=== PATIENT | female | born 1955 | race Caucasian/White ===

== ENCOUNTER 2021-03-19 07:32 | Inpatient (IN) | payer OTHER ==
[~2021-03-19] VITALS: Ht 165.1 cm; Wt 63.5 kg
[2021-03-19 07:37] VITALS: BP 151/70
[2021-03-19 08:06] LABS: ABSOLUTE NEUTROPHILS 14.3 thou/uL (1.4-8.2); BASOPHILS 0.1 % (0.0-2.0); EOSINOPHILS 0.1 % (0.0-3.0); HEMATOCRIT 39.1 % (37.0-47.0); HEMOGLOBIN 13.3 gm/dL (12.0-15.0); LYMPHOCYTES 4.8 % (24.0-44.0); MCH 33.9 pg (26.0-34.0); MCHC 34.1 g/dL (28.0-37.0); MCV 99.5 fL (80.0-100.0); MONOCYTES 5.5 % (1.0-8.0); PLATELET COUNT 268 thou/uL (150-400); POLYS 89.5 % (36.0-66.0); RBC 3.92 mil/uL (4.20-5.00); RDW 13.7 % (10.5-14.5)
[2021-03-19 08:59] LABS: CREATININE 0.8 mg/dL (0.6-1.0)
[2021-03-19 09:00] LABS: POTASSIUM 4.1 mmol/L (3.5-5.1)
[2021-03-19 09:06] LABS: ALBUMIN 3.5 g/dL (3.4-5.0); TOTAL BILIRUBIN 0.4 mg/dL (0.2-1.0); TOTAL PROTEIN 7.2 g/dL (6.4-8.2)
[2021-03-19] MEDS ORDERED: ALEVE220 M1 PO (09:24)
[2021-03-19 09:47] LABS: APTT 22.3 Seconds (24.5-32.8); INR 1.01
[2021-03-19 11:55] LABS: URINE BILIRUBIN NEGATIVE (Negative); URINE BLOOD TRACE (Negative); URINE COLOR YELLOW; URINE GLUCOSE-RANDOM* NEGATIVE (Negative); URINE KETONES 1+ (Negative); URINE NITRITE-REFLEX NEGATIVE (Negative); URINE PROTEIN (DIPSTICK) NEGATIVE (Negative); URINE UROBILINOGEN 0.2 E.U./dl (0.2-1.0)
[2021-03-19 11:58] LABS: URINE CLARITY HAZY; URINE LEUKOCYTES-REFLEX 1+ (Negative)
[2021-03-19 12:19] LABS: CASTS None Seen /LPF (None Seen); SQUAMOUS >10 Many /LPF (0-3)
[2021-03-19 12:20] LABS: CRYSTALS None Seen /LPF (None Seen); URINE RBC None Seen /HPF (0-2); URINE WBC-REFLEX 0-5 Rare /HPF (0-5)
[2021-03-19 14:42] VITALS: BP 131/64
[2021-03-19 16:10] VITALS: BP 183/82
--- NOTE | 2021-03-19 16:24 | EKG ---
[place] [address] [facility] [place] [address] ELECTROCARDIOGRAM REPORT Name: VICTORINO GALLO Room #: 440-P ADM IN M.R.#: [id number] Admission: 03/19/21 Attend Phys: Cody Bettencourt MD Discharge: Date of : 51 Report #: [id number] [facility] ED Test Date: 2021-03-19 Test Time: 10:08:08 Pat Name: VICTORINO GALLO Department: Room: 440 Gender: F Newspaper Or Periodical Editor: MARBIN : 1955 Requested By: Kahlil Pierce Order Number: [id number] MD: Venancio Parker Measurements Intervals [place] Rate: 67 P: 65 [place]: 151 QRS: 16 QRSD: 104 T: -20 QT: 441 QTc: 466 Interpretive Statements Sinus rhythm Low voltage, precordial leads RSR' in V1 or V2, right VCD Borderline T abnormalities, inferior leads No previous ECG available for comparison Electronically Signed On 03-19-2021 16:24:13 CDT by Venancio Parker [email or web address] <ELECTRONICALLY SIGNED> By: Venancio Parker MD, [facility] 03/19/21 1624 1008 1008 Venancio Parker MD, [facility] /EPI
[2021-03-19 20:07] VITALS: BP 150/79
--- NOTE | 2021-03-20 05:16 | NUR ---
ASSUMED PT CARE AT 1900.PT C/O PAIN,MANAGED WITH MED.PT HAD TWO EPISODES OF N/V,ZOFRAN ADMINISTERED.L LEG ELEVATED WITH PILLOW PER PT'S REQUEST.REPOSITIONED PER HER REQUEST.NPO FOR SURGERY LATER TODAY.CALL LIGHT WITHIN REACH.
[2021-03-20 05:48] LABS: HEMATOCRIT 34.9 % (37.0-47.0); HEMOGLOBIN 11.6 gm/dL (12.0-15.0); MCH 33.5 pg (26.0-34.0); MCHC 33.2 g/dL (28.0-37.0); RBC 3.46 mil/uL (4.20-5.00); RDW 13.6 % (10.5-14.5); WBC 10.6 thou/uL (4.0-11.0)
[2021-03-20 06:14] LABS: CALCIUM 8.1 mg/dL (8.5-10.1); CREATININE 0.6 mg/dL (0.6-1.0); POTASSIUM 3.6 mmol/L (3.5-5.1)
--- NOTE | 2021-03-20 07:36 | NUR ---
RECEIVED OT EVAL AND TREAT ORDERS, CHART REVIEW REVEALS PT. TO HAVE SURGERY TODAY. PLACING PT. ON HOLD, WILL NEED NEW ORDERS FROM ORTHO ONCE PT. IS APPROPRIATE TO BEGIN THERAPY.
[2021-03-20 08:00] VITALS: BP 146/71
[2021-03-20 13:15] VITALS: BP 148/87
[2021-03-20 13:30] VITALS: BP 160/87
[2021-03-20 13:45] VITALS: BP 168/76
[2021-03-20 14:00] VITALS: BP 139/56
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
--- NOTE | 2021-03-20 17:00 | NUR ---
Assumed pt care at 7am.Pt in bed resting and anxious about going for surgery today .Assessment completed.vss. Pt c/o nausea and left lower extremity pain. Pt left for surgery per bed at 0820 and returned to floor in stable condition at 1345. Post op vss.Clear liq given and well tolerated. Will continue to monitor.
[2021-03-20 19:04] VITALS: BP 145/72
[2021-03-21 00:55] VITALS: BP 145/72
[2021-03-21 04:09] VITALS: BP 135/69
--- NOTE | 2021-03-21 04:58 | NUR ---
recieved pt oncoming shift no c/o pain or discomfort noted. pleasant demeanor able to make needs know. quiet thru noc. while rounding evaluated for pain c/o pain 5/10 to left lower extermity. prn given . prn effective pt in room with eyes closed repiration even non labored. no current issues or concerns noted. will continue to monitor.
[2021-03-21 07:08] VITALS: BP 146/83
[2021-03-21 08:45] VITALS: BP 146/70
--- NOTE | 2021-03-21 14:12 | NUR ---
ON-GOING ASSESSMENT: CM REVIEWED CHART. PT IS CONTINUING TO PROGRESS. POSSIBLE PLANS OF DISCHARGING TOMORROW. PT REPORTS SHE HAS A WALKER AND WHEELCHAIR FROM HER FATHER IN LAW THAT SHE PLANS ON USING. CM DISCUSSED PT LIKELY CANNOT GET HH UNTIL SHE IS CURRENT WITH A PCP. PT REPORTS SHE IS TRYING TO GET SET UP WITH HER HUSBANDS PCP. CM ENCOURAGED HER TO CALL HIM JERARDO WELL ATTEMPTING TO GET SCHEDULED WITH AN [place]THOPEDIC [place]YSICIAN [place]. CM SPOKE WITH ORTHO PATIENT WILL NOT LIKELY BE ABLE TO GET HH NO CURRENT PCP. PT IS DOING WELL WITH THERAPY AND THINKS SHE WILL BE ABLE TO GET AROUND FINE UNTIL SHE GETS ESTABLISHED WITH PCP. CM WILL CONTINUE TO FOLLOW.
[2021-03-21 16:46] VITALS: BP 132/72
--- NOTE | 2021-03-21 18:30 | NUR ---
PT ASSESSED AT START OF SHIFT. PERCOCET GIVEN FOR PAIN PRIOR TO WORKING W/ THERAPY AND TOLERATED IT WELL. DIET ADVANCED PER PT REQUEST AND IS EATING WELL. AMBULATED IN ROOM W/ THERAPY. UP IN CHAIR MOST OF SHIFT. PLAN FOR DISCHARGE TOMORROW.
[2021-03-21 20:42] VITALS: BP 164/70
--- NOTE | 2021-03-22 06:02 | NUR ---
I CONCUR WITH THE CHARTING BY TUNG AMEZCUA LPN
--- NOTE | 2021-03-22 06:26 | NUR ---
ONCOMING PT C/O NAUSEA WAS GIVEN PRN ZOFRAN/ EFFECTIVE. C/O PAIN TIMES 1 GIVEN PRN 1 OXY 5/325 EFFECTIVE SLEEPING THRU NOC . PT CALLED THIS AM @ 0500 C/O IV BEEPING. IV FLUSHED INFILTRATED PULLED IV CALLED SHUTTLE SPOTTER CYNTHIA SARAVIAAY TO LEAVE IV OUT IF DISCHARGING. REINSERT IF NOT DISCHARING TODAY. EDUCATED PT ON REMOVING CATHETER AND VOIDING BEFORE DISCHARGE. PT REFUSE REMOVAL STATED TO EARLY WOULD LIKE TO WAIT CLOSER TO DISCHARGE.IV SITE SWOLLEN REDNESS NOTE NO WARMTH NOTED WILL CONTINUE TO MONITOR.
[2021-03-22 07:56] VITALS: BP 134/74
[2021-03-22] MEDS ORDERED: PERCOCET PO (08:39)
[2021-03-22] MEDS ORDERED: ASPIRIN EC325 M1 PO (08:39)
[2021-03-22 10:44] VITALS: BP 134/74
[2021-03-22] MEDS ORDERED: XARELTO20 MG PO (10:54)
--- NOTE | 2021-03-22 12:26 | NUR ---
Received awake on bed. Due medications given as prescribed, able to swallow meds w/o difficulty. On room air. On MS, not on telemetry; no complains and signs of chest pain, crushing sensation and heaviness. Assisted in ADLs. On regular diet- tolerating well; no nausea, no vomiting and no abdominal pain noted. With nunez in place- as per night RN, pt refusing to have nunez removed until ready to go home; informed patient that nunez needs to be removed prior to discharge to check return of bladder function- pt agreed to have nunez removed; able to urinate post nunez removal. No IV noted- as per Night RN- IV infiltrated and as per night [employer] ok to leave off IV. With L knee immobilizer in place- dressing C/D/I; no bleeding and drainage noted- TTWB- pt informed and reminded re: this. Pt seen and examined by Dr Bettencourt this AM, discharge orders made. Discharge instructions, follow up schedule and paper prescriptions given to patient as per request since she is living out of state. Pt requested to have anti-emetics included as part of her d/c meds- Dr Bettencourt informed; a/w call back- pt updated.
--- NOTE | 2021-03-22 14:19 | NUR ---
ON-GOING ASSESSMENT: PT HAS ORDERS TO D/C HOME NO NEEDS. PTS WAS PICKING HER UP AND THEY ANTICIPATE DRIVING BACK TO [place]. PT REPORTS SHE HAS THE EQUIPTMENT SHE NEEDED AND WILL FOLLOW UP WITH PHYSICIANS AND ESTABLISHING THEM ONCE BACK TO [place]. PT LEFT UNIT.
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
--- NOTE | 2021-04-10 13:34 | O ---
[facility] [place] [address] OPERATIVE REPORT Name: VICTORINO GALLO Room #: 440-P [facility] IN M.R.#: [id number] Admission: 03/19/21 Attend Phys: Cody Bettencourt MD Discharge: 03/22/21 Date of : 51 Report #: [id number] THIS REPORT FOR: cc: FAM - Family physician unknown FAM - Family physician unknown Gene Escoto MD ~ DOC #: [id number] Gene Escoto MD PREOPERATIVE DIAGNOSIS: Left tibia/fibula fracture, comminuted. POSTOPERATIVE DIAGNOSIS: Left tibia/fibula fracture, comminuted. PROCEDURE PERFORMED: Intramedullary nailing of left tibial shaft fracture. SURGEON: Gene Escoto MD SECURITY TEST ENGINEER: Urmila Falk PA-C ANESTHESIA: General per LMA. FLUIDS: 1100 mL crystalloid. ESTIMATED BLOOD LOSS: 20 mL TOURNIQUET TIME: Approximately 65 minutes at 300 mmHg. IMPLANTS UTILIZED: Synthes 10 mm titanium cannulated tibial nail, 330 mm length, 4 proximal locking screws and 3 distal. DESCRIPTION OF PROCEDURE: After proper identification of the patient and the operative site in the preoperative holding area, the operative site was signed by myself. All compartments appeared soft, and she had intact sensation. Motor exam was limited secondary to pain. She discussed anesthetic options with Dr. Margareth Mackay and elected for general anesthesia. She was brought back to the operative suite after induction of satisfactory general anesthesia. The left lower extremity was elevated. Tourniquet was applied to the upper thigh. The leg compartments all appeared very soft with mild swelling noted. The limb was sterilely prepped and draped in the usual manner, elevated for exsanguination purposes. Tourniquet was inflated. A radiolucent bed and triangle were utilized. A medial parapatellar approach was planned. Skin was incised sharply. Full-thickness skin flaps were developed. The medial parapatellar approach was carried down to the anterior aspect of the tibia. The insertion point was checked with a radiolucent awl and kept to be extraarticular and just off the anterior corner of the tibia. Insertion awl was inserted and under direct visualization in the AP and lateral planes, a slightly bent guidewire was [address] [address] OPERATIVE REPORT Name: VICTORINO GALLO Room #: 440-P [facility] IN ..#: [id number] Admission: 03/19/21 Attend Phys: Cody Bettencourt MD Discharge: 03/22/21 Date of : 51 Report #: [id number] then used to carefully pass through the comminuted section of the tibia into the more distal fragment. Care was taken to not blindly pass this into the posterior soft tissues. Due to the comminution, the fracture could not be reduced and held anatomically, but the cortical edges could be opposed in a satisfactory position and this was reamed in 0.5 mm increments up to 11 mm. A 10 mm nail was chosen 330 mm in length, and it was carefully impacted into position while holding the fracture reduced as best as possible. After it was seated fully proximally and not prominent, its position was verified and there was sufficient room from the joint surface with the fracture held reduced as best as possible through separate incisions. The proximal and distal oblique screws were inserted and then 2 medial screws were inserted, 1 through the dynamic and 1 through the static slot to provide 4 screws proximally through the nail to secure the proximal fragment. A fibular head fracture was also noted in satisfactory alignment. There was some mild displacement at the fracture site, but due to the comminution, this could not be held any closer reduced to anatomic alignment and distally using perfect [place] technique, 2 medial and 1 anterior screw were utilized. The soft tissues were carefully spread with a mosquito clamp and the soft tissues were protected. These screws were all easily passed and inserted. The overall fracture alignment was satisfactory. The wounds were thoroughly irrigated with normal saline. Medial parapatellar approach was closed with 0 Vicryl, 2-0 Vicryl in the subcutaneous tissues followed by running Monocryl. [place] were utilized to close the small incisions for the screw placement. All compartments were soft. A sterile dressing and long leg splint were applied. This will be changed to a hinged knee brace as soon as this is available with unlocked for range of motion. Initially, the patient will be toe touch weightbearing. The patient currently resides in [place] with her and is here seeing family. We discussed postoperatively. I will follow the patient as long as she is here in the [place] area and then we will need to have her look for an orthopedic surgeon who preferably participates with her insurance plan for followup when she returns to home. A qualified clinical research assistant utilized throughout the entire procedure to aid in patient limb positioning, instrument passage, closure, and dressing application. Gene Escoto MD GRV/TAJ <ELECTRONICALLY SIGNED> By: Gene Escoto MD 04/10/21 1334 1100 1158 Gene Escoto MD /nt
== END 2021-03-22 13:46 | disposition home or self-care (01) | DRG 494 ==
LOC: ER 07:32 → EROBS 09:07 → 4S 09:07
PROVIDERS: Emergency Medicine; ADMIT Hospitalist; ATTEND Hospitalist
PROC: 0QSH06Z Reposition Left Tibia with Intramedullary Internal Fixation Device, Open Approach (ICD-10-PCS; principal; 2021-03-20)
PROC: 0QSK04Z Reposition Left Fibula with Internal Fixation Device, Open Approach (ICD-10-PCS; principal; 2021-03-20)
DX: S82.102A Unspecified fracture of upper end of left tibia, initial encounter for closed fracture (principal); S82.832A Other fracture of upper and lower end of left fibula, initial encounter for closed fracture; Z20.822 Contact with and (suspected) exposure to COVID-19; Z72.89 Other problems related to lifestyle; Z88.1 Allergy status to other antibiotic agents; Z79.899 Other long term (current) drug therapy; W18.39XA Other fall on same level, initial encounter; Y93.89 Activity, other specified; Y92.89 Other specified places as the place of occurrence of the external cause; Y99.8 Other external cause status
CPT/HCPCS: 10102; 50010; 50101; 50133; 50386; 56525; 56526; 56527; 57091; 57179; 57281; 5741; 57860; 57866; 57870; 58742; 62110; 62900; 64043; 65060; 70005